=== PATIENT | male | born 1990 | race Caucasian/White ===

== ENCOUNTER 2024-09-16 09:39 | Emergency (ER) | payer BC, SELFPAY ==
[2024-09-16 09:40] VITALS: BP 136/88
--- NOTE | 2024-09-16 10:00 | ED.GENMED ---
History of Present Illness
<VELVET Doty - Last Filed: 09/16/24 11:39>
General
Chief Complaint: Head Injury
Source: patient
Exam Limitations: none
Time Seen by Provider: 09/16/24 09:50
History of Present Illness
History of Present Illness:
33 y/o male pt with a PMH of asthma and GERD presenting to the ED following a posterior head injury from falling on hardwood floor from 6 ft high after a pull-up bar malfunction, fall occurred last night 09/15/24 at 8:30pm, pt's called 911 and
he was taken to [facility] via ambulance. Pt states he was there for over 5 hours and ended up leaving because no scans were done. Denies LOC but states he was disoriented for a while last night, currently feels fine except for a slight
sensation of vertigo. Reports associated left elbow pain and swelling. Denies being on blood thinners. Denies previous head injuries. Denies chest pain, SOB, headache, N/V, visual changes, neck and cervicle spine pain.
Past History
<VELVET Doty - Last Filed: 09/16/24 11:39>
Past History
ED Past Medical History: Asthma and GERD
Review of Systems
<VELVET Doty - Last Filed: 09/16/24 11:39>
Review of Systems
Constitutional: Reports no symptoms
EENT: Reports no symptoms
Respiratory: Reports no symptoms
Cardiac: Reports no symptoms
ABD/GI: Reports no symptoms
Musculoskeletal: Reports no symptoms
Skin: Reports no symptoms
Neurological: Reports no symptoms
Hematologic/Lymphatic: Reports no symptoms
Phy Exam
<VELVET Doty - Last Filed: 09/16/24 11:39>
General Physical Exam
General Presentation: well appearing and no apparent distress
General age: appears stated age
General Skin: warm and dry
General Habitus: normal
General Mental: alert
General Hydration: appears well hydrated
ENT Exam
ENT Exam: neck supple and normocephalic
Eye Exam
Eye Exam: PERRL
Eye Exam General: PERRL: bilateral and EOM intact: bilateral
Cardiovascular Exam
Cardiovascular Exam: regular rate/rhythm
Pulmonary Exam
Pulmonary Exam: lungs clear, no respiratory distress and chest non tender
Gastrointestinal Exam
Gastrointestinal Exam: normal bowel sounds, non tender and soft
Musculoskeletal Exam
Musculoskeletal Exam: full ROM and joint swelling (L elbow minimal)
Course
<VELVET Doty - Last Filed: 09/16/24 11:39>
Orders/Labs/Results
Orders:
Orders
09/16/24 10:06
CT Head W/o Iv Contrast Urgent
Comment:
Reason For Exam: fall
Ibuprofen [Motrin] 600 mg PO NOW STA
Ondansetron Orally Disint [Zofran Odt (Orally Disintegrating)] 4 mg PO NOW STA
Elbow, Left [CR Elbow - Left Min 3 Views ] Urgent
Comment:
Reason For Exam: fall
Vital Signs
Initial and Last Documented VS:
Initial Vital Signs
Temp Pulse Resp BP Pulse Ox
98.4 F 78 18 136/88 97
09/16/24 09:40 09/16/24 09:40 09/16/24 09:40 09/16/24 09:40 09/16/24 09:40
Last Documented Vital Signs
Temp Pulse Resp BP Pulse Ox
98.4 F 78 18 136/88 97
09/16/24 09:40 09/16/24 09:40 09/16/24 09:40 09/16/24 09:40 09/16/24 09:40
<Hugo Faulkner DO - Last Filed: 09/16/24 10:27>
Orders/Labs/Results
Orders:
Orders
09/16/24 10:06
CT Head W/o Iv Contrast Urgent
Comment:
Reason For Exam: fall
Ibuprofen [Motrin] 600 mg PO NOW STA
Ondansetron Orally Disint [Zofran Odt (Orally Disintegrating)] 4 mg PO NOW STA
Elbow, Left [CR Elbow - Left Min 3 Views ] Urgent
Comment:
Reason For Exam: fall
Vital Signs
Initial and Last Documented VS:
Initial Vital Signs
Temp Pulse Resp BP Pulse Ox
98.4 F 78 18 136/88 97
09/16/24 09:40 09/16/24 09:40 09/16/24 09:40 09/16/24 09:40 09/16/24 09:40
Last Documented Vital Signs
Temp Pulse Resp BP Pulse Ox
98.4 F 78 18 136/88 97
09/16/24 09:40 09/16/24 09:40 09/16/24 09:40 09/16/24 09:40 09/16/24 09:40
<VELVET Doty - Last Filed: 09/16/24 11:39>
*Critical Care Note
Total Time (30-74mins, 75-104mins- exclusive of procedures): Not Applicable
ED Attending Note
<VELVET Doty - Last Filed: 09/16/24 11:39>
-
Portions of this chart may have been created with voice recognition software.� Occasional wrong word or��sound alike� substitutions may have occurred due to the inherent limitations of voice recognition software.
<Hugo Faulkner DO - Last Filed: 09/16/24 10:27>
ED Attending Note
Patient seen and examined by attending physician: Yes
I performed a history and physical exam of patient and discussed management with resident, I reviewed resident's note and agree with documented findings and plan of care.: Yes
ED Attending Note:
Seen with student examined independently 33-year-old male head injury yesterday days confused, seen at [place] left without CT scan or imaging, here he still has some mild symptoms, no neck pain no paresthesias does have some minimal pain in his
left elbow will check CT of the head and elbow film, provide reassurance, likely closed head injury
Discharge Plan
Departure
Patient Disposition: Home (Routine Discharge)
Date of Disposition: 09/16/24
Time of Disposition: 10:56
Patient with high blood pressure during this ER visit?: No
Condition: Good
Discharge Problem:
Head injury
Instructions: Concussion, Adult (DC), Contusion (DC), Minor Head Injury (DC)
Prescriptions:
New
ibuprofen 600 mg tablet
600 mg PO Q6H PRN (Reason: Pain) Qty: 20 0RF
ondansetron 4 mg tablet,disintegrating
4 mg PO Q8H PRN (Reason: nausea and vomiting) Qty: 10 0RF
Referrals:
Eliel Sánchez DO [Family Provider] -
Interventions
Interventions:
*Risk Screen - Suicide Last Done: 09/16/24 09:40
*General Assessment Last Done: 09/16/24 09:40
*Neglect/Abuse Screening Last Done: 09/16/24 09:40
*ED- Fall Risk Assessment Last Done: 09/16/24 10:12
*ED COVID-19 Vaccine History Last Done: 09/16/24 10:12
*Nursing Disposition Last Done: 09/16/24 11:02
ED- Neurological Assessment Last Done: 09/16/24 10:12
ED-Skin Assessment Last Done: 09/16/24 10:12
Discharge Date and Time
Discharge Date/Time: 09/16/24 11:05
Print Language: LAO
== END 2024-09-16 11:05 | disposition home or self-care (01) ==
LOC: EMR 09:39
PROVIDERS: EMERGENCY PHYSICIAN Emergency Medicine; FAMILY PHYSICIAN Family Medicine
DX: S09.90XA Unspecified injury of head, initial encounter (principal); W19.XXXA Unspecified fall, initial encounter; J45.909 Unspecified asthma, uncomplicated; K21.9 Gastro-esophageal reflux disease without esophagitis
CPT/HCPCS: 99284; 70450; 73080